=== PATIENT | female | born 1955 ===

== ENCOUNTER → 2024-10-10 | Outpatient (REF) | payer SELFPAY ==
[2024-10-10 21:26] LABS: Anion Gap 11 (5-15); BUN 30 mg/dL (7-18); BUN/Creat Ratio 23.6 RATIO (10-20); Calcium,Total 9.4 mg/dL (8.5-10.1); Chloride 87 mmol/L (98-107); Creatinine, Serum 1.27 mg/dL (0.55-1.02); EST Glomerular Filtration Rate 44 mL/min (>60); Est Glom Filt Rate - Afr Amer 53 mL/min (>60); Glucose 99 mg/dL (74-106); Potassium 4.4 mmol/L (3.5-5.1); Sodium Level 132 mmol/L (136-145)
== END | disposition home or self-care (01) ==
LOC: LABSPEC 20:49
DX: E87.6 Hypokalemia (principal)
CPT/HCPCS: 80048